=== PATIENT | female | born 1990 | race Caucasian/White ===

== ENCOUNTER 2025-10-18 13:29 | Emergency (ER) | payer OTHER, SELFPAY ==
[2025-10-18] VITALS (15 sets, daily range): BP systolic 115–125; BP diastolic 57–111; PULSE 50–94; RESP 10–21; TEMP 36.6; O2SAT 95–100
--- NOTE | ~2025-10-18 | XR_ITS ---
EXAMINATION: XR chest 2V 10/18/2025 15:04 INDICATION: Chest pain, shortness of breath and dizziness PROCEDURE: 2 view chest COMPARISON: No prior studies for comparison. FINDINGS: The lungs are clear. The cardiomediastinal silhouette is within normal limits. There are no pleural effusions. There is no pneumothorax suspected. IMPRESSION: 1: NO ACUTE CARDIOPULMONARY DISEASE. Reviewed, dictated and finalized at location O. [facility]
--- NOTE | 2025-10-18 13:31 | ECG_ITS ---
Test Date: 2025-10-18 13:39:51 Measurements Intervals [place] Rate: 82 P: 38 AL: 122 QRS: 83 QRSD: 94 T: -11 QT: 380 QTc: 445 Interpretive Statements SINUS RHYTHM WITH FREQUENT VENTRICULAR PREMATURE COMPLEXES LOW QRS VOLTAGE IN PRECORDIAL LEADS CANNOT R/O SEPTAL INFARCT, AGE INDETERMINATE BORDERLINE ST-T WAVE ABNORMALITY- ANTEROLAT/INF LEADS BASELINE ARTIFACT- I, II, III, AVR, AVL ,AVF, V1-V6 ABNORMAL ECG No previous ECG available for comparison Electronically Signed On 10-18-2025 14:12:16 BILINGUAL RECRUITER by Gomez Jaramillo D.O.
--- OUTSIDE RECORDS SUMMARY | 2025-10-18 13:32 | XMS_ITS | Clinical Summary ---
Author Organization [facility] Address [facility] [place] [address] Care Team Providers Care Vocational Training Instructor Name Role Phone Cece Carmona MD Primary Care Provider [phone] Allergies No known active allergies Medications escitalopram 20 MG tablet Take 10 mg by mouth daily. Active amphetamine-dex troamphetamine (ADDERALL) 5 MG tablet Take 5 mg by mouth daily. Active oxyCODONE-aceta minophen (PERCOCET) 5-325 MG tabletIndicatio ns:Acute Pain < 7 Day Supply Take 1-2 tablets by mouth every 4 (four) hours as needed for Pain. Indications: Acute Pain < 7 Day Supply 40 tablet 06/03/2022 Active Active Problems No known active problems Immunizations Immunization Administration Dates Next Due PFIZER COVID-19 (ORIGINAL FO RMULATION, PURPLE CAP) mRNA, LNP-S, PF, 30 MCG/0.3 ML DOSE 02/09/2021,01/14/2021 Family History Medical History Relation Comments No Known Problems Father Hyperlipidemia Mother No Known Problems Sister 1 No Known Problems Sister 2 Relation Status Comments Father Alive Mother Alive Sister 1 Alive Sister 2 Alive Social History Tobacco Use Types Packs/Day Years Used Date Smoking Tobacco: Never Smokeless Tobacco: Never Alcohol Use Standard Drinks/Week Comments Not Currently 0 (1 standard drink = 0.6 oz pur e alcohol) less than a drink per month Comments No Sex and Gender Information Value Date Recorded Sex Assigned at Female 05/13/2025 11:09 AM CDT 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 Gender Identity Not on file Sexual Orientation Not on file Last Filed Vital Signs Vital Sign Reading Time Taken Comments Blood Pressure 119/82 06/03/2022 10:35 AM CDT Pulse 74 06/03/2022 10:35 AM CDT Temperature 36.2 C (97.2 F) 06/03/2022 10:35 AM CDT Respiratory Rate 16 06/03/2022 10:3 5 AM CDT Oxygen Saturation 99% 06/03/2022 10: 35 AM CDT Inhaled Oxygen Concentration - - Weight 107.1 kg (236 lb 1.8 oz) 06/03/2022 6:45 AM CDT Height 172.7 cm (5' 8) 06/03/2022 6:45 AM CDT Body Mass Index 35.9 06/03/2022 6:45 AM CDT Plan of Treatment Health Maintenance Due Date Last Done Comments Cervical Cancer Screening Pap Smear (Age 30 to 64) Every 3 Years 1991 Annual Physical 1994 Hepatitis C 2009 HPV Vaccines (2 - 3-dose series) 11/07/2009 10/10/2009 Cervical Cancer Screening Pap with HPV Testing (Age 30 to 64) Every 5 Years 2021 Cervical Cancer Screening with HPV 2021 COVID-19 Vaccine ( season) 2025 02/09/2021, 01/14/2021 Influenza Adult (#1) 2025 09/24/2021, 11/29/2020, 11/27/2019, Additional history exists DTaP, Tdap and Td Vaccines (3 - Td or Tdap) 11/29/2030 11/29/2020, 04/09/2010 Meningococcal Vaccine Completed 04/09/2010 Hepatitis B Vaccines Completed 09/05/2021, 05/18/2001, 04/16/2001 Hepatitis A Vaccines Aged Out No long er eligible based on patient's age to complete this topic Meningococcal B Vaccine Aged Out No l onger eligible based on patient's age to complete this topic Pneumococcal Vaccine: Pediatrics (0 to 5 Years) and At-Risk Patients (6 to 49 Years) Aged Out No longer eligible based on patient's age to complete this topic RSV Immunizations Under 20 Months Aged Out No longer eligible based on patient's age to complete this topic Medical Devices Implanted Type Area Car Carder Device Identifier Shelf Expiration Date Model / Serial / Lot Substitute Bone Graft Bbtrauma Vitoss Foam 5ml - [id number] Implanted:Qty: 1 on 06/03/2022 by Mauro Jiang DPM at [facility] Bone Right: Foot [employer] [id number] 12/24/2023 [id number] / / [id number] 3cc Augment Injectable Bovine Collagen Implanted:Qty: 1 on 06/03/2022 by Mauro Jiang DPM at [facility] Collagen Right: Foot [employer] [facility] 05/26/2023 [id number] / / [id number] Hole Plate Implanted:Qty: 1 on 06/03/2022 by Mauro Jiang DPM at [facility] Plate Right: Foot [id number] / / 3.5x20mm Locking Screw Implanted:Qty: 2 on 06/03/2022 by Mauro Jiang DPM at [facility] Screw Right: Foot [id number] / / [id number] Locking Screw Implanted:Qty: 2 on 06/03/2022 by Mauro Jiang DPM at [facility] Screw Right: Foot [id number] / / 3.5mm X 26mm Locking Screw Implanted:Qty: 1 on 06/03/2022 by Mauro Jiang DPM at [facility] Screw Right: Foot [id number] / / Explanted Type Area Car Carder Device Identifier Shelf Expiration Date Model / Serial / Lot 5.0x44mm Headless Screw Implanted:Qty: 1 on 11/19/2021 by Mauro Jiang DPM at [facility] Explanted:Qty: 1 on 06/03/2022 at [facility] Screw Right: Foot [employer] [id number] / / Easyclip Osetosynthese Compression Staple Implanted:Qty: 1 on 11/19/2021 by Mauro Jiang DPM at [facility] Explanted:Qty: 1 on 06/03/2022 at [facility] Staple Right: Foot [employer] [id number] 05/26/2026 [id number] / / [id number] Insurance [facility] Care Teams Vocational Training Instructor Relationship Specialty Start Date End Date Cece Carmona MD [address] [facility] [place] [id number] PCP - General FAMILY PRACTICE 11/19/21
--- OUTSIDE RECORDS SUMMARY | 2025-10-18 13:32 | XMS_ITS | Patient Health Record ---
Author Organization [facility] ([id number]) Address [address] [place] [address] Care Team Providers Care Resistor Coater Name Role Phone Brenton Diego MD Primary Care Provider Unavail Mitch Chaudhari Unavailable [phone] Reason For Referral No Information Medications Medication SIG (Take, Route, Frequency, Duration) Notes Start Date End Date Status NexIUM 40 MG 1 cap(s) orally once a day; Duration: 30 day(s) 01/29/2010 Active Pataday 0.2 % 1 gtt in each affected eye once a day; Duration: 30 day(s) 01/29/2010 Active PATADAY 0.2% 1 gtt in each affected eye once a day; Duration: 30 day(s) 01/29/2010 Active NASONEX 50 MCG/INH 2 SPRAY(S), AVOID NASAL SEPTUM EACH NOSTRIL ONCE A DAY; Duration: 30 *Please review for potential replacement for e-prescription and drug interaction check* 01/29/2010 Active NEXIUM 40 mg 1 cap(s) orally once a day; Duration: 30 day(s) 01/29/2010 Active EPIPEN 2-DAVID 0.3 mg 0.3 mg intramuscular 1X (may give a second dose in 10-15 minutes for persistent symptoms); Duration: 1 dose 02/02/2010 Active NASAL WASHES N/A DIRECTED INTRANASALLY NEEDED; Duration: 30 *Please review for potential replacement for e-prescription and drug interaction check* 01/29/2010 Active Timothy Allergy 180 MG 1 tab(s) orally once a day; Duration: 30 day(s) 01/29/2010 Active TIMOTHY 180 mg 1 tab(s) orally once a day; Duration: 30 day(s) 01/29/2010 Active EpiPen 2-David 0.3 MG/0.3ML 0.3 mg intramuscular 1X (may give a second dose in 10-15 minutes for persistent symptoms); Duration: 1 dose 02/02/2010 Active Plan Of Treatment No Information Insurance Providers Payer Name Payer Address Payer Phone Subscriber Number Group Number Insured Name Patient Relationship to Insured Coverage Start Date Coverage End Date [facility] [address] [place] [address] [id number] Brayden Rodarte Child - Insured has Financial Responsibility Medical (General) History Medical History History ICD Code None
--- OUTSIDE RECORDS SUMMARY | 2025-10-18 13:33 | XMS_ITS | Clinical Summary ---
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 Active aspirin 325 mg enteric coated tablet Take 1 tablet (325 mg total) by mouth daily Post operatively for DVT prophylaxis 30 tablet 4 Active oxyCODONE (ROXICODONE) 5 mg immediate release tabletIndicatio ns:Pain Take 1 tablet (5 mg total) by mouth every 6 (six) hours as needed for pain 28 tablet 4 Active senna-docusate (PERICOLACE) 8.6-50 mg Take 1 tablet by mouth 2 (two) times a day as needed for constipation 30 tablet 4 Active ondansetron (ZOFRAN) 4 mg tablet Take 1 tablet (4 mg total) by mouth every 8 (eight) hours as needed for nausea or vomiting 20 tablet 4 Active acetaminophen (TYLENOL) 500 mg tablet Take 2 tablets (1,000 mg total) by mouth every 8 (eight) hours as needed for pain 60 tablet 4 Active Active Problems Problem Noted Date Diagnosed Date Arthritis of right foot 01/08/2024 Arthritis of midfoot 08/26/2023 Encounters Date Type Department Care Team Description 09/13/2025 7:14 AM INVENTORY AND PRICING ASSOCIATE - 09/13/2025 11:59 PM INVENTORY AND PRICING ASSOCIATE Hospital Encounter [facility] [address] [place] [address] Cardiomyopathy, unspecified type (HCC) Discharge Disposition: Discharge to home or self care 07/19/2025 Orders Only [facility] [address] [place] [address] Scanning, Provider from Last 3 Months Surgical History Surgery Date Site/Laterality Comments FOOT SURGERY 10/27/2022 - 10/26/2023 Right 2021x2 PILONIDAL CYST DRAINAGE 10/27/2018 - 10/26/2019 x2 Medical History Medical History Date Comments Depression PONV (postoperative nausea a nd vomiting) 09/2023 reports significant PONV wit h foot surgery, still vomited despite Zofran, resolved by evening. Hx scopolamine patch in past for motion sickness Motion sickness Family History Medical History Relation Name Comments Anesthesia problems Neg Hx Social History Tobacco Use Types Packs/Day Years Used Date Smoking Tobacco: Never Smokeless Tobacco: Never Tobacco Cessation:Counseling Given: Not Answered AUDIT-C Answer Date Recorded Q1: How often do you have a drink containing alc ohol? Monthly or less 03/16/2024 Q2: How many drinks containi ng alcohol do you have on a typical day when you are drinking? 1 or 2 03/16/2024 Q3: How often do you have si x or more drinks on one occasion? Never 03/16/2024 Personal Safety Answer Date Recorded Have you ever been in or are you currently in a harmful physical or emotional relationship or is someone making you feel afraid or unsafe? Denies 03/16/2024 Comments No Sex and Gender Information Value Date Recorded Sex Assigned at Not on file Legal Sex Female 12:15 AM INVENTORY AND PRICING ASSOCIATE Gender Identity Not on file Sexual Orientation Not on file Last Filed Vital Signs Vital Sign Reading Time Taken Comments Blood Pressure 106/68 03/16/2024 11:30 AM CDT Pulse 86 03/16/2024 11:30 AM CDT Temperature 35.5 C (95.9 F) 03/16/2024 10:36 AM CDT Respiratory Rate 9 03/16/2024 11:30 AM CDT Oxygen Saturation 95% 03/16/2024 11:30 AM CDT Inhaled Oxygen Concentration - - Weight 105.2 kg (232 lb) 08/23/2024 9:21 AM CDT Height 172.7 cm (5' 8) 08/23/2024 9:21 AM CDT Body Mass Index 35.28 08/23/2024 9:21 AM CDT Plan of Treatment Health Maintenance Due Date Last Done Comments Cervical Cancer Screening 1991 Depression Screening 1991 Hepatitis C Screening 1991 Varicella Vaccines (1 of 2 - 13+ 2-dose series) 2004 Regular Well Visit/Exam 18-64 2009 HPV Vaccines (2 - 3-dose series) 11/07/2009 10/10/2009 Covid-19 Vaccine (3 - season) 2025 02/09/2021, 01/19/2021 Influenza Vaccine (#1) 2025 , 11/29/2020, 11/27/2019, Additional history exists DTaP/Tdap/Td Vaccine (3 - Td or Tdap) 11/29/2030 11/29/2020, 04/09/2010 Hepatitis B Screening Completed 09/05/2021 , 05/18/2001, 04/16/2001 Pneumococcal vaccine <65 Aged Out No longer eligible based on patient's age to complete this topic Medical Devices Implanted Type Area Change Analyst Device Identifier Shelf Expiration Date Model / Serial / Lot Arthrex Dynanite Supermx Staple W/ Instrumentatio n, 25w X 20l Implanted:Qty: 1 on 03/16/2024 by Daniel Pickard Jr., MD at [facility] Staple Right: Foot [employer] 10/26/2027 [id number] / / [id number] Description:Approved by Rosalio rivas to charge and pay. Item not in system [employer] Graft Bone Filler Cortical Cancellous Cyro Freezer Arthrocell [facility] Putty Abs-2009-05 - [id number] - [id number] Implanted:Qty: 1 on 03/16/2024 by Daniel Pickard Jr., MD at [facility] Right: Foot [employer] 11/21/2025 / [id number] / [employer] Graft Bone Augment 3cc Allograft Injectable Kit [id number] - [id number] Implanted:Qty: 1 on 03/16/2024 by Daniel Pickard Jr., MD at [facility] Right: Foot [employer] [id number] 07/24/2026 [id number] / / [id number] [employer] Plate Bone Straight 6 Hole 2.7mm Ti [id number] - [id number] Implanted:Qty: 1 on 03/16/2024 by Daniel Pickard Jr., MD at [facility] Right: Foot [employer] [id number] -[id number] / / [employer] Screw Bone Cortical Threaded 2.7x24mm Ti Ar-89160-51 - [id number] Implanted:Qty: 3 on 03/16/2024 by Daniel Pickard Jr., MD at [facility] Right: Foot [employer] AR-[id number]- 24 / / [employer] Screw Bone Cortical Threaded 2.7x26mm Ti [id number]-[id number] - [id number] Implanted:Qty: 1 on 03/16/2024 by Daniel Pickard Jr., MD at [facility] Right: Foot [employer] Inc AR-23409- 26 / / [employer] Graft Bone Wedge Cancellous Preserve 8mm [facility]-0804 - [id number] - [id number] Implanted:Qty: 1 on 03/16/2024 by Daniel Pickard Jr., MD at [facility] Right: Foot [employer] 03/09/2028 [facility]-0804 / [id number] / Procedures Procedure Name Priority Date/Time Associated Diagnosis Comments MRI CARDIAC M&FUNC W WO CONTRAST Schedule Routine, Read Routine (OP Routine) 09/13/2025 9:19 AM INVENTORY AND PRICING ASSOCIATE Cardiomyopathy, unspecified type (HCC) SCAN - OTHER ORDERS 07/19/2025 from Last 3 Months Results * MRI Cardiac M&F W WO Contrast (09/13/2025 9:19 AM INVENTORY AND PRICING ASSOCIATE) Anatomical Region Laterality Modality Body N/A Magnetic Resonan ce 09/13/2025 11:0 4 AM INVENTORY AND PRICING ASSOCIATE Impressions 09/13/2025 10:43 PM INVENTORY AND PRICING ASSOCIATE 1. Normal heart size. Moderate global hypokinesis (left ventricle ejection fraction 36%, right ventricle ejection fraction 38%). 2. Mild thinning of the left ventricular apex with mild focal decreased wall motion. 3. No delayed gadolinium enhancement suggestive of an infiltrative cardiomyopathy or infarct. Dictated by: Sharath Ventura MD PHD The radiology attending physician has personally reviewed this study, and had reviewed and/or edited this written report and agrees with it. Electronically signed by: Brenton Theodore M.D. Narrative 09/13/2025 10:43 PM INVENTORY AND PRICING ASSOCIATE EXAM: MRI CARDIAC M/T/FUNC W WO CONTRAST HISTORY: CARDIOMYOPATHY TECHNIQUE: Multiplanar MR imaging of the heart utilizing HASTE and TRUEFISP imaging sequences was performed before and after the administration of 20 mL intravenous gadolinium contrast agent according to a custom monitored protocol. 3-D postprocessing was subsequently performed on a dedicated 3-D workstation. COMPARISON: None available FINDINGS: Limited examination secondary to patient motion. Atria are normal in size. Ventricles are normal in size. There is moderate global hypokinesis of the left ventricle which is especially prominent in the left ventricular apex, where there is mild thinning of the myocardium. Left-sided aortic arch with 3-vessel branching pattern. Functional information: Left ventricle: Ejection fraction: 36% End diastolic volume: 154 mL (67 mL/m2, indexed) End systolic volume: 98 mL (44 mL/m2, indexed) Stroke volume: 56 mL (25 mL/m2, indexed) Cardiac output: 4.5 L/min Cardiac index: 2.0 L/min/m2 Right ventricle: Ejection fraction: 38% End diastolic volume: 145 mL (65 mL/m2, indexed) End systolic volume: 90 mL (40 mL/m2, indexed) Stroke volume: 56 mL (25 mL/m2, indexed) Cardiac output: 4.5 L/min Cardiac index: 2.0 L/min/m2 Valves: Mitral valve: normal Tricuspid valve: normal Pulmonic valve: normal Aortic valve: normal Late gadolinium enhancement: No late gadolinium enhancement to suggest infarct or infiltrative cardiomyopathy. No signal abnormalities on the T1 or T2 maps. Flow Quantification: Aorta above valve: Peak velocity: 147 cm/sec Peak pressure gradient: 9 mmHg Fwd flow: 76 mL Rev flow: 1 mL Net flow: 75 mL Regurgitant fraction: 1% Pulmonary artery above valve: Peak velocity: 132 cm/sec Peak pressure gradient: 7 mmHg Fwd flow: 83 mL Rev flow: 0 mL Net flow: 83 mL Regurgitant fraction: 0% Procedure Note BugBrenton donald MD PhD - 09/13/2025 EXAM: MRI CARDIAC M/T/FUNC W WO CONTRAST HISTORY: CARDIOMYOPATHY TECHNIQUE: Multiplanar MR imaging of the heart utilizing HASTE and TRUEFISP imaging sequences was performed before and after the administration of 20 mL intravenous gadolinium contrast agent according to a custom monitored protocol. 3-D postprocessing was subsequently performed on a dedicated 3-D workstation. COMPARISON: None available FINDINGS: Limited examination secondary to patient motion. Atria are normal in size. Ventricles are normal in size. There is moderate global hypokinesis of the left ventricle which is especially prominent in the left ventricular apex, where there is mild thinning of the myocardium. Left-sided aortic arch with 3-vessel branching pattern. Functional information: Left ventricle: Ejection fraction: 36% End diastolic volume: 154 mL (67 mL/m2, indexed) End systolic volume: 98 mL (44 mL/m2, indexed) Stroke volume: 56 mL (25 mL/m2, indexed) Cardiac output: 4.5 L/min Cardiac index: 2.0 L/min/m2 Right ventricle: Ejection fraction: 38% End diastolic volume: 145 mL (65 mL/m2, indexed) End systolic volume: 90 mL (40 mL/m2, indexed) Stroke volume: 56 mL (25 mL/m2, indexed) Cardiac output: 4.5 L/min Cardiac index: 2.0 L/min/m2 Valves: Mitral valve: normal Tricuspid valve: normal Pulmonic valve: normal Aortic valve: normal Late gadolinium enhancement: No late gadolinium enhancement to suggest infarct or infiltrative cardiomyopathy. No signal abnormalities on the T1 or T2 maps. Flow Quantification: Aorta above valve: Peak velocity: 147 cm/sec Peak pressure gradient: 9 mmHg Fwd flow: 76 mL Rev flow: 1 mL Net flow: 75 mL Regurgitant fraction: 1% Pulmonary artery above valve: Peak velocity: 132 cm/sec Peak pressure gradient: 7 mmHg Fwd flow: 83 mL Rev flow: 0 mL Net flow: 83 mL Regurgitant fraction: 0% IMPRESSION: 1. Normal heart size. Moderate global hypokinesis (left ventricle ejection fraction 36%, right ventricle ejection fraction 38%). 2. Mild thinning of the left ventricular apex with mild focal decreased wall motion. 3. No delayed gadolinium enhancement suggestive of an infiltrative cardiomyopathy or infarct. Dictated by: Sharath Ventura MD PHD The radiology attending physician has personally reviewed this study, and had reviewed and/or edited this written report and agrees with it. Electronically signed by: Brenton Theodore M.D. Db Lamb MD IMG MRI PROCEDURES Final Result * SCAN - OTHER ORDERS (07/19/2025) us Provider Scanning Final Result from Last 3 Months Insurance [facility] Advance Directives For more information, please contact: [phone] * Full Code (Latest Code Status on File) Date Activated Date Inactivated Comments 09/30/2023 5:54 PM 10/01/2023 3:32 PM Care Teams Well Shooter Relationship Specialty Start Date End Date No, Physician PCP - General 03/10/23
--- NOTE | 2025-10-18 14:11 | ECG_ITS ---
Test Date: 2025-10-18 14:13:36 Measurements Intervals [place] Rate: 80 P: 63 IN: 135 QRS: 81 QRSD: 94 T: 26 QT: 401 QTc: 465 Interpretive Statements SINUS RHYTHM WITH FREQUENT VENTRICULAR PREMATURE COMPLEXES LOW QRS VOLTAGE IN PRECORDIAL LEADS CANNOT R/O SEPTAL INFARCT, AGE INDETERMINATE BORDERLINE ST-T WAVE ABNORMALITY- ANTEROLAT/INF LEADS BASELINE ARTIFACT- AVR, AVL, AVF ABNORMAL ECG Compared to ECG 10/18/2025 13:39:51 NO SIGNIFICANT CHANGE Electronically Signed On 10-18-2025 14:39:17 MANAGER OPERATIONS AND PROCUREMENT by Gomez Jaramillo D.O.
[2025-10-18 14:13] LABS: Hematocrit 45.2 % (37.0-47.0); Hemoglobin 15.5 g/dL (12.0-15.0); Immature Granulocyte Percent A 0.3 % (0-0.5); Lymphocytes Absolute Auto 3.51 K/mm3 (0.9-3.2); Mean Corpuscular HGB Conc 34.3 g/dl (32-36); Mean Corpuscular Hemoglobin 29.4 pg (26-34); Mean Corpuscular Volume 85.8 fl (80-100); Nucleated Red Blood Cells Absolute Auto 0.000 K/mm3 (0.0-0.012); Nucleated Red Blood Cells Perc 0.0 % (0.0-0.2); Platelet Count Result 280 k/mm3 (150-375); Red Blood Count 5.27 M/mm3 (4.2-5.4); White Blood Count 9.0 K/mm3 (4.5-10.0)
[2025-10-18 14:26] LABS: Alanine Aminotransferase 34 U/L (6-35); Albumin Level 4.7 g/dL (3.5-5.1); Alkaline Phosphatase 80 U/L (38-126); Anion Gap 10 mmol/L (4-12); Aspartate Amino Transferase 31 U/L (14-36); Bilirubin,Total 1.1 mg/dL (0.2-1.3); Blood Urea Nitrogen 13 mg/dL (7-17); Calcium 9.5 mg/dL (8.4-10.2); Carbon Dioxide 19 mmol/L (22-30); Chloride 108 mmol/L (98-107); Estimated CRCL calculation 116 ml/min; Estimated Glomerular Filt Rate > 60; Glucose 115 mg/dL (65-110); Lipase 173 U/L (23-300); Potassium 4.0 mmol/L (3.4-5.0); Sodium 137 mmol/L (137-145); Total Protein 8.6 g/dL (6.3-8.2)
[2025-10-18 14:34] LABS: INR 1.0; Partial Thromboplastin Time 33.5 Seconds (22.3-36.8); Prothrombin Time 13.1 Seconds (11.1-14.7)
[2025-10-18 14:37] LABS: Troponin I < 0.012 ng/mL (0.000-0.034)
[2025-10-18] MEDS: ASPIRIN 81 MG CHEWABLE TABLET 324 MG PO (15:18)
[2025-10-18 15:19] LABS: NT Pro B Type Natriuretic Pept 98 pg/mL (19.9-100)
--- NOTE | 2025-10-18 15:27 | PC.NURSE ---
called lab to add on TSH Reflex and Magnesium.
[2025-10-18 15:38] LABS: Magnesium 2.2 mg/dL (1.6-2.3)
--- OUTSIDE RECORDS SUMMARY | 2025-10-18 15:52 | XMS_ITS | Clinical Summary ---
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 Active aspirin 325 mg enteric [...] Department Care Team Description 09/13/2025 7:14 AM 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 - 09/13/2025 11:59 PM 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 Hospital Encounter [facility] [address] [place] [address] Cardiomyopathy, unspecified type (HCC) Discharge Disposition: Discharge to home or self care 07/19/2025 Orders Only [facility] Health Information Management [address] [place] [address] Scanning, Provider from Last 3 Months Surgical [...] on file Legal Sex Female 12:15 AM 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 Gender Identity Not on file Sexual Orientation [...] this topic Medical Devices Implanted Type Area Mid Level Practitioner Device Identifier Shelf Expiration Date Model / Serial / Lot Arthrex Dynanite Supermx Staple W/ Instrumentatio n, 25w X 20l Implanted:Qty: 1 on 03/16/2024 by Daniel Pickard Jr., MD at [facility] Staple Right: Foot ARTHREX 10/26/2027 [id number]-[id number] / / [id number] Description:Approved by Rosalio rivas to charge and pay. Item not in system [employer] Graft Bone Filler Cortical Cancellous Cyro Freezer Arthrocell [facility] Putty Abs-2009-05 - [id number] - [id number] Implanted:Qty: 1 on 03/16/2024 by Daniel Pickard Jr., MD at [facility] Right: Foot Ar[employer] Inc 11/21/2025 / [id number] / [employer] Graft Bone Augment 3cc Allograft Injectable Kit [id number] - [id number] Implanted:Qty: 1 on 03/16/2024 by Daniel Pickard Jr., MD at [facility] Right: Foot [employer] [id number] 07/24/2026 [id number] / / [id number] Ar[employer]rex Inc Plate Bone Straight 6 Hole 2.7mm Ti Tp-15648t-98 - [id number] Implanted:Qty: 1 on 03/16/2024 by Daniel Pickard Jr., MD at [facility] Right: Foot [employer] Inc AR-[id number] -03 / / Ar[employer] Inc Screw Bone Cortical Threaded 2.7x24mm Ti Ar-41045-11 - [id number] Implanted:Qty: 3 on 03/16/2024 by Daniel Pickard Jr., MD at [facility] Right: Foot [employer] Inc AR-43660- 24 / / [employer] Inc Screw Bone Cortical Threaded 2.7x26mm Ti Va-68740-23 - [id number] Implanted:Qty: 1 on 03/16/2024 by Daniel Pickard Jr., MD at [facility] Right: Foot [employer] Inc AR-56011- 26 / / [place] [employer] Graft Bone Wedge Cancellous Preserve 8mm [facility]-0804 - [id number] - [id number] Implanted:Qty: 1 on 03/16/2024 by Daniel Pickard Jr., MD at [facility] Right: Foot [employer] 03/09/2028 [facility]-0804 / [id number] / Procedures Procedure Name Priority Date/Time Associated Diagnosis Comments MRI CARDIAC M&FUNC W WO CONTRAST Schedule Routine, Read Routine (OP Routine) 09/13/2025 9:19 AM 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 Cardiomyopathy, unspecified type (HCC) SCAN - OTHER ORDERS 07/19/2025 from Last 3 Months Results * MRI Cardiac M&F W WO Contrast (09/13/2025 9:19 AM 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) Anatomical Region Laterality Modality Body N/A Magnetic Resonan ce 09/13/2025 11:0 4 AM 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 Impressions 09/13/2025 10:43 PM 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 1. Normal heart size. Moderate global hypokinesis [...] Brenton Theodore M.D. Narrative 09/13/2025 10:43 PM 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 EXAM: MRI CARDIAC M/T/FUNC W WO CONTRAST [...] Electronically signed by: Brenton Theodore M.D. Db Lmab MD IMG MRI PROCEDURES Final Result * SCAN - OTHER ORDERS (07/19/2025) us Provider Scanning Final Result from Last 3 Months Insurance [facility] Advance Directives For more information, please contact: [phone] * Full Code (Latest Code Status on File) Date Activated Date Inactivated Comments 09/30/2023 5:54 PM 10/01/2023 3:32 PM Care Teams Gas Load Dispatcher Relationship Specialty Start Date End Date No, Physician PCP - General 03/10/23
--- OUTSIDE RECORDS SUMMARY | 2025-10-18 15:52 | XMS_ITS | Clinical Summary ---
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 Gender Identity Not on file Sexual Orientation [...] this topic Medical Devices Implanted Type Area Oral Hygienist Device Identifier Shelf Expiration Date Model / Serial / Lot Substitute Bone Graft Bbtrauma Vitoss Foam 5ml - [id number] Implanted:Qty: 1 on 06/03/2022 by Mauro Jiang DPM at [facility] Bone Right: Foot [employer] [id number] 12/24/2023 [id number] / / [id number] 3cc Augment Injectable Bovine Collagen Implanted:Qty: 1 on 06/03/2022 by Mauro Jiang DPM at [facility] Collagen Right: Foot [employer] [facility] 05/26/2023 [id number] / / [id number] Hole Plate Implanted:Qty: 1 on 06/03/2022 by Mauro Jiang DPM at [facility] Plate Right: Foot [id number] / / 3.5x20mm Locking Screw Implanted:Qty: 2 on 06/03/2022 by Mauro Jiang DPM at [facility] Screw Right: Foot [id number] / / [id number] Locking Screw Implanted:Qty: 2 on 06/03/2022 by Mauro Jiang DPM at [facility] Screw Right: Foot [id number] / / 3.5mm X 26mm Locking Screw Implanted:Qty: 1 on 06/03/2022 by Mauro Jiang DPM at [facility] Screw Right: Foot [id number] / / Explanted Type Area Oral Hygienist Device Identifier Shelf Expiration Date Model / Serial / Lot 5.0x44mm Headless Screw Implanted:Qty: 1 on 11/19/2021 by Mauro Jiang DPM at [facility] Explanted:Qty: 1 on 06/03/2022 at [facility] Screw Right: Foot [employer] [id number] / / Easyclip [employer] Compression Staple Implanted:Qty: 1 on 11/19/2021 by Mauro Jiang DPM at [facility] Explanted:Qty: 1 on 06/03/2022 at [facility] Staple Right: Foot [employer] [id number] 05/26/2026 [id number] 5 / / [id number] Insurance [facility] Care Teams Tube Draw Helper Relationship Specialty Start Date End Date Cece Carmona MD [address] [facility] [place] [place] [id number] PCP - General FAMILY PRACTICE 11/19/21
[2025-10-18 16:10] LABS: Thyroid Stimulating Hormone Reflex 1.120 uIU/mL (0.465-4.68)
--- NOTE | 2025-10-18 16:51 | ED_ITS ---
HPI - General Adult General Chief complaint: Chest Pain Stated complaint: heart failure, CP, SOB, dizzy Time Seen by Provider: 10/18/25 14:47 History of Present Illness HPI narrative: 35-year-old female presents to the emergency department for evaluation for intermittent dizziness. Patient does have a history of congestive heart failure. Patient does have multiple PVCs and does follow-up with [facility] Patient is scheduled to have a cardiac ablation. Patient felt more lightheaded than usual today. Patient does have some intermittent chest pain. For a cardiac ablation. Patient denies any chest pain but patient does still have some associated lightheadedness. Patient denies any recent coughs colds fevers. Patient denies any change in diet. Related Data Allergies Allergy/AdvReac Type Severity Reaction Status Date / Time cortisone AdvReac Mild Swelling Verified 10/18/25 13:31 Review of Systems 2 Review of Systems: All systems reviewed & are unremarkable except as noted in HPI and below Exam 2 Narrative: APPEARANCE: Well appearing, no pain, no distress, well-nourished. HEAD: normocephalic, atraumatic. EYES: PERRLA/EOMI, conjunctivae clear. NOSE: Normal no drainage EARS:TMS clear with good light reflex. THROAT: Pharynx clear, no exudate. NECK: Supple. No adenopathy, no masses. RESPIRATORY: Airway patent, respirations nonlabored. Clear to auscultation bilaterally, no rales, rhonchi, wheezing. CARDIOVASCULAR: Regular rate and rhythm without murmurs rubs or gallops. ABDOMINAL: Soft, nontender, nondistended, normal bowel sounds MUSCULOSKELETAL: Moves all extremities. Strength/ROM intact, No edema, No calf tenderness. NEURO: Alert. Cranial nerves II through XII intact. Good gait. Good coordination SKIN: Warm, dry. Normal Color Course Vital Signs Vital signs: Vital Signs Temperature 97.9 F 10/18/25 13:37 Pulse Rate 50 L 10/18/25 13:37 Respiratory Rate 16 10/18/25 13:37 Blood Pressure 115/72 10/18/25 13:37 Pulse Oximetry 99 10/18/25 13:37 Oxygen Delivery Room Air 10/18/25 13:37 Temperature 97.9 F 10/18/25 13:37 Pulse Rate 82 10/18/25 17:11 Respiratory Rate 16 10/18/25 17:11 Blood Pressure 115/79 10/18/25 17:11 Pulse Oximetry 95 10/18/25 17:11 Oxygen Delivery Room Air 10/18/25 15:09 [facility] Narrative Medical decision making narrative: 35 old female presents emergency department for evaluation for intermittent lightheaded dizziness along with some intermittent chest pain. Patient is currently afebrile with no leukocytosis stable hemoglobin. INR of 1.0. No acute abnormalities on her CMP. Patient had negative serial troponins. Patient's TSH in macro normal. Chest x-ray shows no acute cardiopulmonary abnormality. EKG showed no evidence acute STEMI. Patient does have a cardiac arrhythmia with frequent PVCs. Patient does have this at baseline and does have follow-up scheduled with cardiology. Patient was updated the results of the workup. Patient states he does feel improved in the emergency department. Patient was encouraged close follow-up with her physicians as scheduled. Patient was also educated on reasons to return to the emergency department. All questions concerns were addressed. Differential Diagnosis Differential Diagnosis: ACS, COVID, RSV, influenza, pneumonia Lab Data [facility] Lab Attestation statement: I personally reviewed the patient's lab results. 10/18/25 13:45 10/18/25 13:45 Labs: Lab Results 10/18/25 10/18/25 10/18/25 Range/Units 13:44 13:45 16:52 WBC 9.0 (4.5-10.0) K/mm3 RBC 5.27 (4.2-5.4) M/mm3 Hgb 15.5 H (12.0-15.0) g/dL Hct 45.2 (37.0-47.0) % MCV 85.8 (80-100) fl MCH 29.4 (26-34) pg MCHC 34.3 (32-36) g/dl RDW 12.6 (11.5-14.5) % Plt Count 280 (150-375) k/mm3 MPV 10.4 (7.4-10.4) fl Immature Gran % (Auto) 0.3 (0-0.5) % Neut % (Auto) 51.2 (45.5-73.1) % Lymph % (Auto) 39.1 (18.3-44.2) % [place] % (Auto) 7.9 (2.6-8.5) % Eos % (Auto) 0.9 (0-4.4) % Baso % (Auto) 0.6 (0.2-1.2) % Lymph # (Auto) 3.51 H (0.9-3.2) K/mm3 [place] # (Auto) 0.7 H (0.1-0.6) K/mm3 Eos # (Auto) 0.1 (0-0.3) K/mm3 Baso # (Auto) 0.1 (0.0-0.1) K/mm3 Abs Immat Gran (auto) 0.03 (0.00-0.031) K/mm3 Absolute Neuts (auto) 4.6 (1.3-6.7) K/mm3 Absolute Nucleated RBC 0.000 (0.0-0.012) K/mm3 Nucleated RBC % 0.0 (0.0-0.2) % PT 13.1 (11.1-14.7) Seconds INR 1.0 APTT 33.5 (22.3-36.8) Seconds Sodium 137 (137-145) mmol/L Potassium 4.0 (3.4-5.0) mmol/L Chloride 108 H (98-107) mmol/L Carbon Dioxide 19 L (22-30) mmol/L Anion Gap 10 (4-12) mmol/L BUN 13 (7-17) mg/dL Creatinine 0.77 (0.7-1.0) mg/dL Estim Creat Clear Calc 116 ml/min Estimated GFR > 60 (59 - ) Glucose 115 H (65-110) mg/dL Calcium 9.5 (8.4-10.2) mg/dL Magnesium 2.2 (1.6-2.3) mg/dL Total Bilirubin 1.1 (0.2-1.3) mg/dL AST 31 (14-36) U/L ALT 34 (6-35) U/L Alkaline Phosphatase 80 (38-126) U/L Troponin I < 0.012 < 0.012 (0.000-0.034) ng/mL NT-Pro-B Natriuret Pep 98 (19.9-100) pg/mL Total Protein 8.6 H (6.3-8.2) g/dL Albumin 4.7 (3.5-5.1) g/dL Lipase 173 (23-300) U/L TSH (Reflex) 1.120 (0.465-4.68) uIU/mL Imaging Data Attestation: I personally reviewed and interpreted this imaging study as follows: My impression: Chest x-ray: No acute cardiopulmonary abnormality Radiologist's impression: ITS Impressions Chest X-Ray 10/18/25 15:13 IMPRESSION: 1: NO ACUTE CARDIOPULMONARY DISEASE. Discharge Plan Discharge Clinical Impression: Light-headedness Patient Disposition: Home Condition: Stable Instructions: Antibiotic Form Additional Instructions: Continue to have close follow-up with your time study analyst and with your primary care physician. If you have any worsening symptoms then please call or return to the emergency department. Patient Language: Khmer Follow-up/Referrals: Isabel Luna MD [Primary Care Provider, Pediatrics]
[2025-10-18 17:28] LABS: Troponin I < 0.012 ng/mL (0.000-0.034)
== END 2025-10-18 18:06 | disposition home or self-care (01) ==
PROVIDERS: Emergency Provider Emergency Medicine; PCP Pediatrics
DX: R42 Dizziness and giddiness (principal); I49.3 Ventricular premature depolarization; I50.9 Heart failure, unspecified
CPT/HCPCS: 36415; 71046; 80053; 83690; 83735; 83880; 84443; 84484; 85025; 85610; 85730; 93005; 99284; A9270